=== PATIENT | male | born 1995 ===

== ENCOUNTER → 2017-10-11 | Outpatient (CLI) | payer BC ==
--- NOTE | 2017-10-11 14:15 | RADIOLOGY IMAGING REPORT ---
FACILITY: [facility] PATIENT NAME: Michael Ramos : 1995 MR: [id number] V: [id number] EXAM DATE: ORDERING PHYSICIAN: ISADORA ESPINOZA TECHNOLOGIST: Location: [facility] Patient: Michael Ramos : 1995 Visit/Account:[id number] Date of Sevice: 10/11/[address] scan without contrast COMPARISONS: None ADDITIONAL PERTINENT HISTORY: Traumatic brain injury TECHNIQUE: Multiple axial images were obtained from the skull base to the vertex without IV contrast . One of the following dose optimization techniques was utilized in the performance of this exam: Aut omated exposure control; adjustment of the mA and/or kV according to the patient's size; or use of an iterative reconstruction technique. Specific details can be referenced in the facility's radiology CT exam operational policy. FINDINGS: Midline shift: Negative Ventricles: Negative Brain parenchyma: Negative Extra-axial spaces: Negative Intracranial vasculature: Negative Osseous structures: Negative Paranasal sinuses and mastoid air cells: Small mucous retention cyst involving the right maxillary s inus. Rather significant nasal septal deviation to the left. Surrounding soft tissues and orbits: Negative IMPRESSION: No evidence of acute intracranial pathology. Report Dictated By: De Ross MD at 10/11/2017 2:09 PM Report E-Signed By: De Ross MD at 10/11/2017 2:12 PM [id number]
== END ==
LOC: RAD 13:38
PROVIDERS: ATTEND Internal Medicine
DX: S06.9X9A Unspecified intracranial injury with loss of consciousness of unspecified duration, initial encounter (principal); J34.2 Deviated nasal septum
CPT/HCPCS: 70450